=== PATIENT | female | born 1980 | race American Indian/Alaskan Native ===

== ENCOUNTER 2018-07-13 11:25 | Emergency (ER) | payer OTHER ==
[2018-07-13 11:31] VITALS: BP 129/86
[2018-07-13] MEDS ORDERED: XYLOCAINE 1% 20 mL INFILTRATI ONE (13:34)
[2018-07-13] MEDS ORDERED: NACL 0.9% IR ONE (13:35)
[2018-07-13] MEDS ORDERED: XYLOCAINE 1% MPF 5 mL ONE (13:53)
--- NOTE | 2018-07-13 13:56 | Emergency Department Report ---
Chief Complaint: Skin/Abscess/Foreign Body Stated Complaint: RT ARM BOIL Time Seen by Provider: 07/13/18 12:56 - HPI History of Present Illness: L UNDERARM ABSCESS VSS NON TOXIC NO LIFE THREAT MSE COMPLETED WILL NEED I/D - Exam Vital Signs: Vital Signs 07/13/18 11:30 Temperature 98 F Pulse Rate 84 Respiratory 18 Rate Blood Pressure 129/86 O2 Sat by Pulse 99 Oximetry MSE screening note: Focused history and physical exam performed. Due to findings the following was ordered: ED Disposition for MSE Condition: Stable Referrals: PRIMARY CARE, [Primary Care Provider] - 3-5 Days
[2018-07-13] MEDS ORDERED: IBUPROFEN PO ONE (14:53)
[2018-07-13] MEDS ORDERED: CLEOCIN PO ONE (14:53)
[2018-07-13] MEDS ORDERED: NORCO 5/325 PO ONE (14:53)
--- NOTE | 2018-07-13 14:54 | Emergency Department Report ---
Abscess Boil HPI - HPI Chief Complaint: Skin/Abscess/Foreign Body Stated Complaint: RT ARM BOIL Time Seen by Provider: 07/13/18 12:56 Duration: 3 Days Location: Upper Extremity (right axilla) Severity: Severe (10/10) History: Yes Pain (10/10 and throbbing), Yes Previous History (patient with history of hidradenitis), No Fever, No Purulent Drainage, No Numbness, No Fore ign Body, No Insect Bite HPI: This is a 38-year-old female here report that she bled onto her right arm and that she has problems with her sweat glands. Infected and it has been going on for years and she has had several episodes of this. She said the last time she was on antibiotics for this was 2 years ago. Pain is 10/10 and throbbing. No medication taken. Denies any fever or chills. Denies any numbness or tingling to extremity. Tetanus vaccine is up-to-date Home Medications: Previous Rx's Medication Instructions Recorded Last Taken Type Acetaminophen/Codeine [Tylenol 1 tab PO Q6H PRN #14 tab 07/13/18 Unknown Rx /Codeine # 3 tab] Clindamycin [Clindamycin CAP] 300 mg PO Q8H 10 Days #30 cap 07/13/18 Unknown Rx Ibuprofen [Motrin] 800 mg PO Q8HR PRN #12 tablet 07/13/18 Unknown Rx Allergies/Adverse Reactions: Allergies Allergy/AdvReac Type Severity Reaction Status Date / Time Sulfa (Sulfonamide Allergy Rash Verified 07/13/18 11:26 Antibiotics) ED Review of Systems ROS: Stated complaint: RT ARM BOIL Other details as noted in HPI Constitutional: denies: chills, fever Eyes: denies: eye pain ENT: denies: ear pain, throat pain, congestion Respiratory: denies: cough, shortness of breath, wheezing Cardiovascular: denies: chest pain, palpitations, edema Gastrointestinal: denies: nausea, vomiting Musculoskeletal: arthralgia (right axilla). denies: back pain, joint swelling, myalgia Skin: other (abscess) Neurological: denies: headache ED Past Medical Hx - Past Medical History Previous Medical History?: Yes Additional medical history: Hydradenitis - Surgical History Past Surgical History?: No - Family History Family history: hypertension - Social History Smoking Status: Current Every Day Smoker Substance Use Type: None - Medications Home Medications: Home Medications Medication Instructions Recorded Confirmed Last Taken Type Acetaminophen/Codeine [Tylenol 1 tab PO Q6H PRN #14 tab 07/13/18 Unknown Rx /Codeine # 3 tab] Clindamycin [Clindamycin CAP] 300 mg PO Q8H 10 Days #30 cap 07/13/18 Unknown Rx Ibuprofen [Motrin] 800 mg PO Q8HR PRN #12 tablet 07/13/18 Unknown Rx ED Abscess Boil Physical Exam - Exam General: Vital signs noted. No distress. Alert and acting appropriately. This is a 30-year-old female here report that she has abscess under her right axilla. She is alert oriented and in no acute distress. Front/Back of Body, Lg (Color): 1 - 3 cm indurated fluctuant area to the right adnexa. Mild erythema and tenderness to palpate. No drainage. Multiple areas of scarring. No drainage noted Size: 3 cm Exam: Yes Tenderness (right axilla), Yes Fluctuance (right axilla with some indurated area that is not fluctuant), Yes Surrounding Cellulites/Erythema (right axilla), Yes Normal Neurologic Exam (alert and oriented 3, no focal deficits), Yes Normal Circulation (No cce. + 2 pulses in all extremities, no neurovascular compromise), No Lymphangitis, No Crepitation, No Heart Murmur (regular rate and rhythm.) Exam: Lungs: Clear to auscultate bilaterally, no rhonchi. No rales. Extremity: No clubbing, cyanosis or edema. Distal pulses to all extremities. Psych: Normal mood and behavior I & D Note - I & D Note I & D Note: Incision and drainage of abscess. Patient with history of tendinitis to right axilla with infection. 3 cm area of erythema and fluctuance. Area cleansed with iodine and normal saline. 5 mL of lidocaine injected site. #11 blade used to make less than 0.25 cm incision to site and noted large amount of pus without any order. Packed with iodoform packing and and sterile dry gauze dressing placed side. Patient tolerated procedure well. Tetanus vaccine is up-to-date ED Course Vital Signs 07/13/18 11:30 Temperature 98 F Pulse Rate 84 Respiratory 18 Rate Blood Pressure 129/86 O2 Sat by Pulse 99 Oximetry - Reevaluation(s) Reevaluation #1: 07/13/18 15:36 Patient given [place] 5/10 52 tablets by mouth and enemas this region milligram in yes name and this is Emergency room. Critical care attestation.: If time is entered above; I have spent that time in minutes in the direct care of this critically ill patient, excluding procedure time. ED Medical Decision Making - Medical Decision Making 38-year-old female with history of tinnitus with abscess to right axilla. Incision and drainage procedure done . Please refer to procedure note for detail. She was given Fargo 5/325 mg 2 tablets in Emergency room. Tetanus vaccine is up-to-date. Patient discharged home to follow up with primary care and dermatology. She is given prescription for Motrin, Tylenol 3 clindamycin. Her vital signs are stable and she is afebrile and pain is better. ED Disposition Clinical Impression: Right axillary hidradenitis, Encounter for incision and drainage procedure, Abscess Disposition: [id number] TO HOME OR SELFCARE Is pt being admited?: No Does the pt Need Aspirin: No Condition: Stable Instructions: Abscess Incision and Drainage (ED) Additional Instructions: Take antibiotic as prescribed Follow-up with your primary care physician in 4 days days and if he cannot get into a primary care then he can return to the emergency room for evaluation and possible drainage of abscess. If you noticed that area it is increasing in size, redness, develop fever, nausea and there vomited , palpitation and feeling weak. Return to the emergen cy room KATHI Keep affected area clean and dry. Followed discharge instruction on acute wound care . Please do not remove packing in from site. Please do not drive or operate heavy machinery while taking in Tylenol 3 at this medication causes drowsiness. Take Motrin for mild pain. Prescriptions: Acetaminophen/Codeine [Tylenol /Codeine # 3 tab] 1 tab PO Q6H PRN #14 tab PRN Reason: moderate to severe pain Clindamycin [Clindamycin CAP] 300 mg PO Q8H 10 Days #30 cap Ibuprofen [Motrin] 800 mg PO Q8HR PRN #12 tablet PRN Reason: pain Referrals: PRIMARY CARE, [Referring] - 07/17/18 [facility] [Outside] - 07/17/18 HANK HURLEY MD [Staff Physician] - 07/17/18 Forms: Work/School Release Form(ED)
== END 2018-07-13 15:57 | disposition home or self-care (01) ==
LOC: ED 11:25
DX: L73.2 Hidradenitis suppurativa (principal); L02.411 Cutaneous abscess of right axilla; F17.200 Nicotine dependence, unspecified, uncomplicated